=== PATIENT | female | born 1990 | race Caucasian/White ===

== ENCOUNTER 2017-01-08 12:04 | Emergency (ER) | payer MEDICAID, OTHER ==
[2017-01-08 12:38] VITALS: O2SAT 95
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
[2017-01-08 13:40] VITALS: BP 107/65; PULSE 105; RESP 16; TEMP 97.9
== END 2017-01-08 13:38 ==
LOC: EDUNIT#
DX: S00.81XA Abrasion of other part of head, initial encounter (principal); F17.200 Nicotine dependence, unspecified, uncomplicated; V43.02XA Car driver injured in collision with other type car in nontraffic accident, initial encounter; Y92.410 Unspecified street and highway as the place of occurrence of the external cause; Y99.8 Other external cause status; Y93.89 Activity, other specified